=== PATIENT | male | born 1960 | race Caucasian/White ===

== ENCOUNTER 2019-05-20 08:38 | Outpatient (CLI) | payer BC ==
--- NOTE | 2019-05-18 08:17 | NUR ---
LMOM FOR PT TO CALL BACK FOR HELATH HISTORY
[2019-05-20] VITALS (12 sets, daily range): BP systolic 130–142; BP diastolic 72–94; PULSE 58–77
[~2019-05-20] VITALS: Ht 185.4 cm; Wt 84.2 kg
[~2019-05-20 08:38] MED LIST: MYSOLINE 250MG250 MG PO; NUVIGIL150 MG PO; PHENOBARBITAL97.2 MG PO
--- NOTE | 2019-05-20 10:05 | NUR ---
PT WAS BROUGHT INTO THE CT ROOM AMBULATORY AND IS POSITIONED ON THE TABLE. VSS.
--- NOTE | 2019-05-20 10:25 | NUR ---
PROCEDURE COMPLETED. PT TAKEN TO EU10 IN WHEELCHAIR. REPORT TO BUSTER
--- NOTE | 2019-05-20 10:35 | NUR ---
Transferred by wc from Radiology. Alert and oriented, VS baseline. Bandaid to right upper chest CD&I.
--- NOTE | 2019-05-20 11:55 | NUR ---
Discharge instructions given. IV discontinued intact. Transferred to private car by [facility] by Abi Messer
== END 2019-05-20 11:55 | disposition home or self-care (01) ==
LOC: COL.RAD 08:38
DX: R22.1 Localized swelling, mass and lump, neck (principal)

== ENCOUNTER → 2019-06-30 | Outpatient (CLI) | payer BC | LOC: COL.RAD 10:49 | DX: D15.0 Benign neoplasm of thymus (principal); E07.89 Other specified disorders of thyroid; R91.8 Other nonspecific abnormal finding of lung field | CPT/HCPCS: Q9967 ==